=== PATIENT | female | born 1955 ===

== ENCOUNTER 2018-10-15 12:43 | Outpatient (CLI) | payer MEDICAID | END 2018-10-15 12:44 | disposition home or self-care (01) | LOC: C.CARD 12:43 | DX: M20.11 Hallux valgus (acquired), right foot (principal) ==

== ENCOUNTER 2018-11-05 06:17 | Day surgery (SDC) | payer MEDICAID ==
[2018-10-29 12:10] VITALS: BMI 31.1
[2018-11-05] MEDS ORDERED: Midazolam 2 MG/2 ML VIAL ONE (07:33)
[2018-11-05] MEDS ORDERED: Propofol 10 mg/ml Inj (20 ML) ONE (07:33)
[2018-11-05] MEDS ORDERED: Lidocaine Hydrochloride 20 ML INJ ONE (07:49)
[2018-11-05] MEDS ORDERED: ceFAZolin 1 gm in NS 1 GM/100 ML BAG IVPB ONE (07:49)
[2018-11-05] MEDS ORDERED: Bupivacaine 0.25% 20 ML INJ IJ ONE (07:49)
[2018-11-05] MEDS ORDERED: Phenylephrine 10 mg/ml Inj ONE (08:08)
[2018-11-05] MEDS ORDERED: Esmolol 100 mg/10ml Inj IV ONE (08:18)
[2018-11-05] MEDS ORDERED: HYDROmorphone 0.5 mg/0.5 ml ISec IVP PRN (10:58)
[2018-11-05] MEDS ORDERED: Lactated Ringer's 1,000 ML IV SCH (11:00)
--- NOTE | 2018-11-05 11:11 | PCM.SURG1 ---
Surgeon's Initial Post Op Note - Surgeon's Notes Surgeon: Dr. Geoffrey Monroy DPM Puller Out: Dr. Jessy Puri DPM PGY-2; Dr. Sagastume DPM PGY-3 Type of Anesthesia: General LMA, Local Anesthesia Administered By: Dr. Agrawal Pre-Operative Diagnosis: Right foot hallux abductovalgus Operative Findings: See dictation. M: Arthrex Lapidus plate, 3.5 x 16mm, 20mm, 22 mm screw; 4.0 x 38mm screw, 2.5 x 16mm headless screw, 2-0, 3-0, 4-0 vicryl, 4-0 prolene. I: 10 cc of 0.5% marcaine plain Post-Operative Diagnosis: Same Operation Performed: Right foot Lapidus bunionectomy. Right foot Revridin osteotomy Specimen/Specimens Removed: none Estimated Blood Loss: EBL {In ML}: 30 Blood Products Given: N/A Drains Used: No Drains Post-Op Condition: Good Date of Surgery/Procedure: 11/05/18 Time of Surgery/Procedure: 11:12
--- NOTE | 2018-11-05 12:43 | RAD ---
Date of service: 11/05/2018 PROCEDURE: Right Foot Radiographs. HISTORY: s/p right foot surgery COMPARISON: None. FINDINGS: BONES: No fractures appreciated. Some osseous hypertrophic changes at the 2nd metatarsal base noted. Partial resection medial 1st metatarsal head, medial 1st metatarsal plate with multiple screws grossly intact hardware seen medial tarsal metatarsal fusion suggested JOINTS: 1st metatarsal-phalangeal joint arthrosis- Dorsal midfoot arthrosis suggested. Sesamoid hallux arthrosis noted SOFT TISSUES: Dorsal soft tissue swelling with radiolucencies likely relating to recent surgical intervention at the metatarsal head levels per lateral view. Overlying gauze/splinting present OTHER FINDINGS: None. IMPRESSION: Postsurgical changes as above. Hardware intact.
[2018-11-05 15:49] VITALS: RESP 16; TEMP 98.8
[2018-11-05 15:59] VITALS: BP 100/56; PULSE 77; O2SAT 98
--- NOTE | 2018-11-06 15:20 | RAD ---
Date of service: 11/05/2018 PROCEDURE: Intraoperative Fluoroscopy. HISTORY: RT. FOOT LAPIDUS BUNIONECTOMY FINDINGS: Fluoroscopic assistance was provided. Fluoroscopy time = 14.1 sec. Radiation dose = 0.19 mGy. Please refer to the operative report from [facility].
--- NOTE | 2018-11-08 06:10 | OP ---
PROCEDURE DATE: 11/05/2018 PREOPERATIVE DIAGNOSIS: Right foot hallux abducto valgus. POSTOPERATIVE DIAGNOSIS: Right foot hallux abducto valgus. PROCEDURES PERFORMED: 1. Right foot Lapidus bunionectomy. 2. Right foot Reverdin bunionectomy. SURGEON: Geoffrey Turk DPM ASSISTANTS: 1. Jessy Puri DPM, PGY-2 2. Junaid Sagastume DPM, PGY-3 ANESTHESIOLOGIST: ANESTHESIA: General LMA with local. INDICATIONS: The patient is a 63-year-old female with the above diagnoses. The patient is being treated by Dr. Turk in his office as an outpatient basis where surgical versus conservative options have been discussed with the patient. The patient seeks surgical intervention at this time. All risks, benefits, and possible complications of the proposed procedure have been explained to the patient at greater length. The patient verbalizes understanding and wishes to proceed with the procedure. All questions were answered. No guarantees were given nor implied. Consent was signed and n.p.o. status was confirmed prior to bringing the patient into the operating room. OPERATIVE PROCEDURE: The patient was brought into the operating room and was placed on the operating room table in supine position. A well-padded pneumatic tourniquet was applied to the patient's right thigh. Once general LMA was achieved, the patient received a local injection of 1:1 mixture of 0.25% Marcaine plain to 1% lidocaine plain in a local block type fashion. Once the local anesthesia was achieved, the foot was then prepped and draped in the usual sterile manner. PROCEDURE #1: Right foot Lapidus bunionectomy: Attention was directed to the dorsal medial aspect of the first metatarsophalangeal joint on the right foot where an approximately 6-cm linear longitudinal incision was made medial and parallel to the extensor hallucis longus tendon which involved the contour of the deformity. The incision was extended to the level of the first metatarsal medial cuneiform joint. The incision was then deepened through the subcutaneous tissue down to the level of periosteum using sharp and blunt dissection. Care was taken to identify and retract all vital neurovascular structures. All bleeders were cauterized and ligated as necessary. At this time, a linear capsulotomy/periosteal incision was made over the dorsal aspect of the first metatarsophalangeal joint. The periosteal and capsular structures were then carefully dissected free of the osseous attachment and reflected medially and laterally thus exposing the head of the first metatarsal into the operative field as well as the first metatarsal cuneiform joint into the operative site. At this time, utilizing an oscillating bone saw, approximately 1 to 2 mm of the base of the first metatarsal was resected and was passed off the operative field. Next, utilizing the oscillating bone saw which was directed parallel to the base of the second metatarsal. Approximately 1 mm of the medial cuneiform was resected and was passed off the operative field. At this time, using osteotome, the first metatarsal cuneiform joint was read and was checked for any form of articulating cartilage at this time. Once it was confirmed that there is no articulating cartilage left at the level of the base of the first metatarsal as well as the medial cuneiform, the surgical field was copiously irrigated with copious amount of sterile saline. At this time, utilizing a 0.045 K-wire, it was driven and the head of the first metatarsal down the shaft all the way passed through the first metatarsal cuneiform joint once the proper reduction of the first metatarsal cuneiform joint was performed. At this time, intraoperative C-arm images were taken to check for the reduction of the first metatarsal cuneiform into proper anatomic alignment as well as reducing the intermetatarsal angle. Once intermetatarsal angle was reduced, the first metatarsal cuneiform joint was in proper anatomic alignment, which was confirmed by the F[employer] MAIL CLERK as well as the lateral x-ray. The C-arm Arthrex Lapidus plate was utilized and was temporarily fixated on the medial aspect of the first metatarsal cuneiform joint using two small . fixation, the plate was secured at the level of the first metatarsal cuneiform joint using 3.5 x 16 mm, 20 mm and 22 mm screws all the proximal and distal holes of the plate. Next, utilizing proper 38-mm screw was inserted from dorsal distal to plantar proximal at the level of the first metatarsal cuneiform joint crossing the first metatarsal cuneiform joint in a lag type fashion to achieve compression. Once the compression was achieved, the 0.045 inch K-wire was removed from the head of the first metatarsal. At this time, intraoperative C-arm images were taken to confirm the proper anatomic alignment of the first metatarsal cuneiform joint as well as the reduction in the first intermetatarsal angle. It was confirmed by proper alignment when the [employer] MAIL CLERK and lateral x-rays were taken intraoperatively. Next, attention was directed to the head of the first metatarsal. PROCEDURE #2: Right foot Reverdin bunionectomy: At this time, attention was directed to the head of the first metatarsal. The medial eminence of the first metatarsal was noted to be grossly hypertrophied in nature. Next, utilizing an oscillating bone saw, the medial eminence was resected and passed off the operative site. At this time, utilizing a marking pen, plantar and dorsal cuts were planned. A [id number] osteotomy was created plantarly using an oscillating bone saw connecting the osteotomy dorsally. The osteotomy was created leaving the lateral pins intact. Next, utilizing an oscillating bone saw, approximately less than 1-mm wedge was taken from the dorsal osteotomy site. It was passed off the operative site. The osteotomy showed an L-type osteotomy at the head of the first metatarsal with the lateral hinge intact. Next, utilizing a head lift 2.5-mm cannulated screw, a 16-mm screw was inserted to fixate the osteotomy created. Next, utilizing an intraoperative C-arm, the images were taken to confirm the proper alignment of the first metatarsal cuneiform joint as well as the first metatarsophalangeal joint. Both were noted to be intact on anatomic alignment with the proper reduction in the intermetatarsal angle. At this time, the surgical site was then irrigated with copious amount of sterile saline. The periosteal closure was performed utilizing 2-0 Vicryl. Distal periosteal closure was performed using 3-0 Vicryl. Subcutaneous tissue was then reapproximated using 4-0 Vicryl. The skin was then reapproximated using 4-0 Prolene using simple suture technique. Surgical site was then injected with 10 mL of 0.5% Marcaine plain in a local block type fashion. Surgical site was then sterilely dressed with Betadine-soaked Adaptic, 4x4, Kerlix and Onofre bandage. The patient was placed in a well-padded posterior splint. At this point, the thigh tourniquet was then deflated with vascular return noted to the patient's foot. POSTOPERATIVE CONDITION: The patient tolerated the anesthesia and the procedure well and was escorted to the recovery room with vital signs stable and neurovascular status intact to the patient's right foot. The patient will remain nonweightbearing to the right lower extremity using a walker. All of the postoperative instructions were provided prior to taking the patient to the operating room. The patient will follow up with Dr. Turk in his office within one week. Jessy Puri DPM Geoffrey Turk DPM
== END 2018-11-05 13:30 | disposition home or self-care (01) ==
LOC: C.SDS 06:17
PROVIDERS: ATTEND Podiatrist Foot & Ankle Surgery
DX: M20.11 Hallux valgus (acquired), right foot (principal)
CPT/HCPCS: 28292; 73630; 97116; 97161; G8978; G8979; G8980; J0690; J1100; J2001; J2250; J2370; J2704; J2765; J3010